=== PATIENT | female | born 1975 | race Caucasian/White ===

== ENCOUNTER 2017-03-02 18:29 | Emergency (ER) | payer OTHER ==
[~2017-03-02] VITALS: Ht 167.6 cm; Wt 79.5 kg
[2017-03-02 18:36] VITALS: Ht 167.6 cm; Wt 79.5 kg
[2017-03-02] MEDS ORDERED: AZITHROMYCIN 250 MG TAB PO ONE (20:00)
[2017-03-02] MEDS ORDERED: CEFTRIAXONE 250 MG INJ IM ONE (20:00)
[2017-03-02] MEDS ORDERED: LIDOCAINE 1% (MDV) 20 ML INJ IM ONE (20:00)
--- NOTE | 2017-03-02 20:31 | ERD ---
ER Documentation Chief Complaint Date/Time DATE: 03/02/17 TIME: 20:27 Chief Complaint vaginal pain x 4 days HPI Patient is a 41-year-old female who presents to the ED with vaginal pain 4 days. She states that she has been having unprotected sex multiple episodes with one partner. She states that she has never had sexual intercourse with his partner and is concerned about STDs. She complains of increasing vaginal discharge. She denies fever or chills or abdominal pain. She has no pelvic pain. She states that it lane with urination. Denies a history of STDs in the past. ROS All systems reviewed and are negative except as per history of present illness. Medications Home Meds Active Scripts Tramadol HCl (Tramadol HCl) 50 Mg Tablet, 50 MG PO Q4 Y for PAIN, #10 TAB Prov:DARRYN CORTES PA-C 03/02/17 Acyclovir* (Zovirax*) 800 Mg Tablet, 800 MG PO 5 TIMES DAILY for 7 Days, TAB Prov:DARRYN CORTES PA-C 03/02/17 Allergies Allergies: Coded Allergies: No Known Allergy (Unverified , 03/02/17) PMhx/Soc History of Surgery: Yes (LAMINECTOMY 1999, PARTIAL [id number]) Anesthesia Reaction: No Hx Neurological Disorder: No Hx Respiratory Disorders: No Hx Cardiac Disorders: No Hx Psychiatric Problems: No Hx Miscellaneous Medical Probl: No Hx Alcohol Use: Yes (OCCASSIONAL) Hx Substance Use: No Hx Tobacco Use: No Smoking Status: Never smoker FmHx Family History: No coronary disease, No diabetes, No other Physical Exam Vitals Vital Signs Date Time Temp Pulse Resp B/P Pulse Ox O2 Delivery O2 Flow Rate FiO2 03/02/17 18:36 97.3 69 20 123/83 98 Physical Exam GENERAL: Well-developed, well-nourished female. Appears in no acute distress. HEAD: Normocephalic, atraumatic. EYES: Pupils are equally reactive bilaterally. EOMs grossly intact. No conjunctival erythema. ENT: Moist mucous membranes. No uvula deviation. No kissing tonsils. No exudates. NECK: Supple. No lymphadenopathy or thyromegaly. No meningismus. negative kernig. negative brudinski. LUNG: Clear to auscultation bilaterally. No rhonchi, wheezing, rales or coarse breath sounds. HEART: Regular rate and rhythm. No murmurs, rubs or gallops. ABDOMEN: No scars, ecchymosis or rashes noted. Soft, nontender, and nondistended. Positive bowel sounds in all four quadrants. No rebound tenderness , no guarding. (-) McBurneys point tenderness. No CVA tenderness. PELVIC: ulcers on the inner labia majora. with multiple erythamatous lesions on the outer pubic symphysis and outer vagina. no cmt. no pelvic pain. BACK: No midline tenderness. Extremities: Equal pulses bilaterally. No peripheral clubbing, cyanosis or edema. No unilateral leg swelling. NEUROLOGIC: Alert and oriented. Moving all four extremities. 5/5 strength in all extremities. Normal speech. Steady gait. SKIN: Normal color. Warm and dry. No rashes or lesions. Capillary refill < 2 seconds Results 24 hrs Current Medications Medications (Trade) Dose Ordered Sig/Roby Route PRN Reason Start Time Stop Time Status Last Admin Dose Admin Azithromycin (Zithromax) 1,000 mg ONCE ONCE PO 03/02/17 20:00 03/02/17 20:01 DC 03/02/17 20:14 Ceftriaxone Sodium (Rocephin) 250 mg ONCE ONCE IM 03/02/17 20:00 03/02/17 20:01 DC 03/02/17 20:14 Lidocaine (Xylocaine 1% (Mdv) 20 ml) 20 ml ONCE ONCE IM 03/02/17 20:00 03/02/17 20:01 DC 03/02/17 20:14 Procedures/MDM ER COURSE: I kept the patient and/or family informed of laboratory and diagnostic imaging results throughout the emergency room course. MEDICAL DECISION MAKING: This is a 41-year-old female who presents with evaluation of STD and vaginal pain. Vital signs were reviewed. Patient is afebrile. Patient is not hypoxic. Patient is not toxic or ill-appearing. There were multiple ulcers on the inside vaginal majora which is likely herpes. I will be treating the patient outpatiently for this. Her urine was sent for gonorrhea and chlamydia. Patient was also treated for gonorrhea and chlamydia here in the ED with azithromycin and Rocephin which she tolerated well with no adverse reaction. Low suspicion for ovarian torsion, PID, tuboovarian abscess, ectopic , bowel obstruction, pyelonephritis, UTI, appendicitis, cervicitis, septic , molar , HELLP syndrome, preeclampsia, eclampsia, placenta previa, placenta abruptia. Negative test. Urine dip was negative for nitrites or leukocytes DISCHARGE: At this time, patient is stable for discharge and outpatient management with no new complaints during the ER course. Patient was sent home with acyclovir and tramadol for pain and a copy of methods engineer in the area to follow-up. Patient will be discharged home with instructions to recheck for new or worsening symptoms such as fever, nausea, weakness, LOC and to follow up with primary care in the next 1-2 days. Patient was advised to return to the ER for any new or worsening symptoms. Plan was discussed and patient and/or family understands and agrees. Home instructions were given. Departure Diagnosis: Primary Impression: Possible exposure to STD Condition: Stable DARRYN CORTES PA-C Mar 02, 2017 20:31
[2017-03-02] MEDS ORDERED: ACYC800T57 PO (20:33)
[2017-03-02] MEDS ORDERED: TRAM50TA2 PO (20:33)
[2017-03-02 20:39] LABS: URINE BLOOD (Dip) POC Negative (NEGATIVE)
[2017-03-02 20:50] VITALS: BP 129/87; PULSE 61; RESP 20; TEMP 97.3
== END 2017-03-02 20:51 | disposition home or self-care (01) ==
LOC: FTE 18:29
DX: Z20.2 Contact with and (suspected) exposure to infections with a predominantly sexual mode of transmission (principal)
CPT/HCPCS: 81003; 96372; J0696; Z7502; Z7610